=== PATIENT | male | born 1965 | race Caucasian/White ===

== ENCOUNTER 2019-07-10 14:36 | Emergency (ER) | payer BC ==
[~2019-07-10] VITALS: Ht 162.6 cm; Wt 86.2 kg
[2019-07-10 14:40] VITALS: BP_SYST 144
[2019-07-10 17:01] VITALS: BP_SYST 132
== END 2019-07-10 17:00 | disposition home or self-care (01) ==
LOC: SED 14:36
DX: H92.01 Otalgia, right ear (principal)
CPT/HCPCS: 99283